=== PATIENT | male | born 1995 | race Hispanic/Latino ===

== ENCOUNTER 2017-09-10 22:46 | Emergency (ER) | payer OTHER ==
[2017-09-10 23:02] VITALS: TEMP 98.3
--- NOTE | 2017-09-11 00:18 | ED PDOC ---
HPI: Abdomen Time Seen by Provider: 09/10/17 23:55 Chief Complaint (Nursing): Abdominal Pain Chief Complaint (Provider): abdominal pain History Per: Patient History/Exam Limitations: no limitations Onset/Duration Of Symptoms: Days (2) Current Symptoms Are (Timing): Gone Now Location Of Pain/Discomfort: RLQ Quality Of Discomfort: "Pain" Additional Complaint(s): 22 y/o male presents for evaluation of right lower abdominal pain x 2 days. Patient states on 07/26/17 he went to the ED in [facility] for testicular/abd pain and was treated with 10 days of keflex for a possible skin infection that was found on CT. Patient states he went to an Urgent care for continued pain after finishing antibiotics and was told he could have epididymitis and was prescribed 10 days of levaquin. Patient states he then followed up with a Urologist and was told he could have had prostatitis, was prescribed anti- inflammatories. Patient states right lower abdominal pain started last night, which is different from previous symtpoms; was seen at Urgent Care today and advised to take antacids but afterwards he noticed bright red blood in his stool after having a normal bowel movement, which prompted ED visit. Denies fever, nausea/vomiting, chest pain, shortness of breath, palpitations, recent travel, sick contacts, urinary symptoms, testicular pain/swelling. Past Medical History Reviewed: Historical Data, Nursing Documentation, Vital Signs Vital Signs: Last Vital Signs Temp 98.3 F 09/10/17 22:56 Pulse 93 H 09/10/17 22:56 Resp 18 09/10/17 22:56 BP 144/96 H 09/10/17 22:56 Pulse Ox 100 09/11/17 00:18 - Medical History PMH: No Chronic Diseases - Surgical History Surgical History: No Surg Hx - Family History Family History: States: No Known Family Hx - Living Arrangements Living Arrangements: With Family - Allergies Allergies/Adverse Reactions: Allergies Allergy/AdvReac Type Severity Reaction Status Date / Time No Known Allergies Allergy Verified 09/10/17 22:56 Review of Systems ROS Statement: Except As Marked, All Systems Reviewed And Found Negative Gastrointestinal: Positive for: Abdominal Pain, Hematochezia Physical Exam - Reviewed Nursing Documentation Reviewed: Yes Vital Signs Reviewed: Yes - Physical Exam Appears: Positive for: Well, Non-toxic, No Acute Distress Head Exam: Positive for: ATRAUMATIC, NORMAL INSPECTION, NORMOCEPHALIC Skin: Positive for: Normal Color Eye Exam: Positive for: Normal appearance ENT: Positive for: Normal ENT Inspection Cardiovascular/Chest: Positive for: Regular Rate, Rhythm Respiratory: Positive for: Normal Breath Sounds Gastrointestinal/Abdominal: Positive for: Normal Exam, Bowel Sounds, Soft. Negative for: Tenderness Back: Positive for: Normal Inspection Extremity: Positive for: Normal ROM Neurologic/Psych: Positive for: Alert, Oriented - Laboratory Results Result Diagrams: 09/11/17 00:20 09/11/17 00:20 - ECG O2 Sat by Pulse Oximetry: 100 - Progress ED Course And Treament: labs On re-eval, patient resting comfortably; still without pain. Patient educated on findings, discharged with instructions to follow up with GI. Return precautions given Disposition - Clinical Impression Clinical Impression: Blood in stool - Patient ED Disposition Is Patient to be Admitted: No Counseled Patient/Family Regarding: Studies Performed, Diagnosis, Need For Followup - Disposition Referrals: Pierre Atkinson MD, PhD [Staff Provider] - Disposition: Routine/Home Disposition Time: 02:15 Condition: STABLE Instructions: Bloody Stools Forms: [facility] (Polish)
[2017-09-11 00:35] LABS: URINE BACTERIA RARE (<OCC); URINE BILIRUBIN NEGATIVE (NEGATIVE); URINE BLOOD NEGATIVE (NEGATIVE); URINE CLARITY CLOUDY (Clear); URINE COLOR YELLOW (YELLOW); URINE GLUCOSE (UA) NEG (Normal); URINE LEUKOCYTE ESTERASE NEG Leu/uL (Negative); URINE PROTEIN 30 mg/dL (NEGATIVE)
[2017-09-11 00:43] LABS: BASO % 0.5 % (0.0-2.0); EOS # 0.1 K/uL (0.0-0.7); EOS % 0.9 % (0.0-4.0); HEMOGLOBIN 13.9 g/dL (12.0-18.0); LYMPH # 1.9 K/uL (1.0-4.3); MEAN CELL VOLUME 89.3 fl (80.0-94.0); MEAN CORPUSCULAR HEMOGLOBIN 31.1 pg (27.0-31.0); MEAN CORPUSCULAR HGB CONC 34.8 g/dL (33.0-37.0); MEAN PLATELET VOLUME 7.2 fl (7.2-11.7); MONO # 0.5 K/uL (0.0-0.8); MONO % 8.8 % (0.0-10.0); NEUT # 3.6 K/uL (1.8-7.0); NEUT % 58.8 % (50.0-75.0); RBC 4.46 Mil/uL (4.40-5.90); WHITE BLOOD COUNT 6.1 K/uL (4.8-10.8)
[2017-09-11 00:49] LABS: ALB/GLOB RATIO 1.6 (1.0-2.1); ALBUMIN 4.5 g/dL (3.5-5.0); ALT/SGPT 31 U/L (21-72); AST/SGOT 40 U/L (17-59); BLOOD UREA NITROGEN 22 mg/dl (9-20); CALCIUM 9.3 mg/dL (8.4-10.2); GFR AFRICAN-AMERICAN > 60; GFR NON-AFRICAN AMERICAN > 60
[2017-09-11 02:23] VITALS: BP 133/84; PULSE 82; RESP 17; O2SAT 98
== END 2017-09-11 02:23 | disposition home or self-care (01) ==
LOC: H.ER 22:46
DX: R19.5 Other fecal abnormalities (principal)